=== PATIENT | female | born 1930 ===

== ENCOUNTER 2019-01-22 09:14 | Emergency (ER) | payer OTHER ==
[~2019-01-22] VITALS: Ht 162.6 cm; Wt 63.0 kg
[2019-01-22] MEDS ORDERED: PROTONIX20 MG PO (09:43)
[2019-01-29] MEDS ORDERED: PEPCID AC20 MG PO (06:00)
== END 2019-01-22 10:30 | disposition home or self-care (01) ==
LOC: ER 09:14
DX: M54.5 Low back pain (principal)